=== PATIENT | female | born 1985 | race Two or more races ===

== ENCOUNTER 2019-02-07 19:59 | Inpatient (IN) | payer OTHER ==
--- NOTE | 2019-02-07 20:10 | PDOC ---
History of Present Illness - General Chief Complaint: Seizure Stated Complaint: Seizure - History of Present Illness Initial Comments: The pt is a 33F w/ no reported PMH who presents for evaluation s/p an episode of lightheadedness follow by falling, was caught by her friend, and had described eye rolling and right hand clenching with head shaking. This lasted for approximately 30 sec and the friend denies any description of a postictal state. The pt denies remembering the incident. She denies recent fevers/chill, chest pain, PETE, vision changes, N/V/C/D, dysuria, hematuria, or blood in her stool. She describes one previous episode in 09/2018 but she was not evaluated at that time. Currently she denies any symptoms or pain. No IUD, no OCPs, history of 1 in the past, no history of DVT 02/07/19 20:25 Past History - Past Medical History Allergies/Adverse Reactions: Allergies Allergy/AdvReac Type Severity Reaction Status Date / Time No Known Allergies Allergy Verified 02/07/19 20:50 COPD: No - Suicide/Smoking/Psychosocial Hx Smoking History: Unknown if ever smoked Review of Systems - Review of Systems Able to Perform ROS?: Yes Comments:: GENERAL/CONSTITUTIONAL: No fever or chills. No weakness HEAD, EYES, EARS, NOSE AND THROAT: No change in vision. No ear pain or discharge. No sore throat CARDIOVASCULAR: No chest pain or shortness of breath RESPIRATORY: Denies cough, hemoptysis GASTROINTESTINAL: No nausea, vomiting, diarrhea or constipation GENITOURINARY: No dysuria, frequency, or change in urination MUSCULOSKELETAL: No joint or muscle swelling or pain. No neck or back pain SKIN: No rash NEUROLOGIC: No headache, vertigo, or change in strength/sensation ENDOCRINE: No increased thirst. No abnormal weight change HEMATOLOGIC/LYMPHATIC: No anemia, easy bleeding, or history of blood clots ALLERGIC/IMMUNOLOGIC: No hives or skin allergy 02/07/19 20:10 Is the patient limited [place]an proficient: No *Physical Exam - Vital Signs Last Vital Signs Temp Pulse Resp BP Pulse Ox 98.0 F 101 H 18 112/75 100 02/07/19 20:01 02/07/19 20:01 02/07/19 20:01 02/07/19 20:01 02/07/19 20:01 - Physical Exam Comments: GENERAL: Awake, alert, and oriented to person/place/time, in no acute distress HEAD: No signs of trauma, normocephalic, atraumatic EYES: PERRLA, EOMI, sclera anicteric, conjunctiva clear ENT: Hearing grossly normal, nares patent, oropharynx clear without exudates. No uvular deviation. Moist mucosa LUNGS: No distress, speaks in full sentences, clear to auscultation bilaterally HEART: Regular rate and rhythm, normal S1 and S2, no murmurs appreciated, peripheral pulses normal and equal bilaterally ABDOMEN: Soft, nontender, normoactive bowel sounds. No guarding, no rebound EXTREMITIES: Normal inspection, Normal range of motion, no edema. No clubbing or cyanosis NEUROLOGICAL: Cranial nerves II through XII grossly intact. Normal speech, normal gait, no focal sensorimotor deficits SKIN: Warm, Dry 02/07/19 20:10 ED Treatment Course - LABORATORY CBC & Chemistry Diagram: 02/07/19 20:50 02/07/19 20:50 Medical Decision Making - Medical Decision Making The pt is a 33F w/ no reported PMH who presents for evaluation s/p likely syncopal episode approximately 2 hours [employer]BILE [employer] IN[employer]ER ED Course CMP, CBC, Trop I, Serum preg ECG CT head, CXR Noted to be Tachycardic -IVF 02/07/19 20:28 ECG w/ sinus tachycardic; HR 103; QTc 458; no evidence of acute ischemia 02/07/19 21:32 Leukocytosis to 13, afebrile Anemia to 9.1, no previous to compare to, transfusion not indicated at this time 02/07/19 21:39 CXR w/o PNA, PNX 02/07/19 21:51 Trop I neg Lytes wnl No NAKUL LFTs unremarkable 02/07/19 22:11 CT Head w/o contrast; 02/07/19 FINDINGS: The brain parenchyma demonstrates normal attenuation without focal mass or mass effect. The ventricles are not enlarged. No acute intracranial hemorrhage or acute infarction. The visualized aspect of the paranasal sinuses and mastoid air cells are unremarkable. No acute fracture 02/07/19 23:02 Plan for Tele obs for syncope Will add UDS and orthostatic VS 02/07/19 23:31 *DC/Admit/Observation/Transfer Diagnosis at time of Disposition: Syncope Qualifiers: Syncope type: unspecified Qualified Code(s): R55 - Syncope and collapse - Discharge Dispostion Condition at time of disposition: Good Decision to Admit order: Yes - Referrals - Patient Instructions - Post Discharge Activity
[2019-02-07] MEDS ORDERED: SODIUM CHLORIDE 0.9% 500 ML INFUS.BAG IV ONE (20:25)
[2019-02-07] MEDS ORDERED: SODIUM CHLORIDE 0.9% 1000 ML INFUS.BAG IV ONE (20:25)
[2019-02-07 21:27] LABS: BASO % 0.4 % (0-2.0); EOS % 0.3 % (0-4.5); HEMOGLOBIN 9.1 GM/dL (10.7-15.3); LYMPH % 12.6 % (8-40); MCH 23.2 pg (25.7-33.7); MCHC 30.3 g/dl (32.0-36.0); MEAN CELL VOLUME 76.6 fl (80-96); MEAN PLT VOLUME 8.5 fl (7.5-11.1); MONO % 5.2 % (3.8-10.2); NEUT % 81.5 % (42.8-82.8); PLATELET COUNT 512 K/MM3 (134-434); RBC 3.92 M/mm3 (3.60-5.2); RDW 22.1 % (11.6-15.6); WHITE BLOOD COUNT 13.4 K/mm3 (4.0-10.0)
[2019-02-07 21:52] LABS: ALK PHOS 69 U/L (45-117); ANION GAP 5 MMOL/L (8-16); BILIRUBIN,TOTAL 0.2 mg/dL (0.2-1); BLOOD UREA NITROGEN 8.8 mg/dL (7-18); CHLORIDE 106 mmol/L (98-107); CO2 31 mmol/L (21-32); CREATININE 0.9 mg/dL (0.55-1.3); GLUCOSE,RANDOM 87 mg/dL (74-106); POTASSIUM 3.9 mmol/L (3.5-5.1); SGOT/AST 19 U/L (15-37); SGPT/ALT 19 U/L (13-61); SODIUM 141 mmol/L (136-145); TOT PROT 8.1 g/dl (6.4-8.2)
[2019-02-07 22:16] LABS: ANISOCYTOSIS 2+
[2019-02-07 22:17] LABS: MACROCYTOSIS 1+; PLATELET ESTIMATE SLT INCREASE
--- NOTE | 2019-02-07 22:20 | PDOC ---
Documentation entered by Adelaida Farrell SCRIBE, acting as scribe for Amber Pringle MD. Amber Pringle MD: This documentation has been prepared by the Bud sommer Sammi, SCRIBE, under my direction and personally reviewed by me in its entirety. I confirm that the documentation accurately reflects all work, treatment, procedures, and medical decision making performed by me. Attending Attestation - Resident Resident Name: SharontawanaMinesh - ED Attending Attestation I have performed the following: I have examined & evaluated the patient, The case was reviewed & discussed with the resident, I agree w/resident's findings & plan, Exceptions are as noted - HPI HPI: 02/07/19 20:44 The patient is a 33 year old female, with no significant PMH, who presents to the emergency department for evaluation of lightheadedness and fainting, being caught by friend. The patient's friend at bedside reports the patient's eyes rolled back and right hand clenching. The patient denies chest pain, shortness of breath, headache and dizziness. Denies fever, chills, nausea, vomit, diarrhea and constipation. Denies dysuria, frequency, urgency and hematuria. Allergies: NKA - Physicial Exam PE: 02/07/19 21:03 GENERAL: Well developed, well nourished. Awake and alert. No acute distress. HEENT: Normocephalic, atraumatic. PERRLA, EOMI. No conjunctival pallor. Sclera are non- icteric. Moist mucous membranes. Oropharynx is clear. NECK: Supple. Full ROM. No JVD. Carotid pulses 2+ and symmetric, without bruits. No thyromegaly. No lymphadenopathy. CARDIOVASCULAR: (+)tachycardic No murmurs, rubs, or gallops. Distal pulses are 2+ and symmetric. PULMONARY: No evidence of respiratory distress. Lungs clear to auscultation bilaterally. No wheezing, rales or rhonchi. ABDOMINAL: Soft. Non-tender. Non-distended. No rebound or guarding. No organomegaly. Normoactive bowel sounds. MUSCULOSKELETAL Normal range of motion at all joints. No bony deformities or tenderness. No CVA tenderness. EXTREMITIES: No cyanosis. No clubbing. No edema. No calf tenderness. SKIN: Warm and dry. Normal capillary refill. No rashes. No jaundice. NEUROLOGICAL: Alert, awake, appropriate. Cranial nerves 2-12 intact. No deficits to light touch and temperature in face, upper extremities and lower extremities. No motor deficits in the in face, upper extremities and lower extremities. Normoreflexic in the upper and lower extremities. Normal speech. Toes are down- going bilaterally. - Medical Decision Making 02/07/19 21:33 33 yo female who denies any significant PMH had a witnessed fainting episode. She denies any inciting triggers.She denies palpitations,chest pain,fever,chills ,headache. She states she was not in the hot weather for any length of time -she had 1 prior episode earlier this year and also felt "flushed" just prior to losing consciousness -negative test negative troponin ekg is tachycardia @ 103 bpm -no tongue trauma, no bladder or bowel incontinence 02/07/19 21:44 will ADMIT for tele OBS 02/07/19 22:18 labs unremarkable
[2019-02-07 23:40] LABS: PH,URINE 8.5 (5.0-8.0); URINE APPEARANCE CLEAR; URINE BILIRUBIN NEGATIVE (NEGATIVE); URINE COLOR YELLOW; URINE GLUCOSE (UA) NEGATIVE (NEGATIVE); URINE KETONE NEGATIVE (NEGATIVE); URINE LEUK ESTERASE NEGATIVE (NEGATIVE); URINE NITRITE NEGATIVE (NEGATIVE); URINE PROTEIN NEGATIVE (NEGATIVE); URINE UROBILINOGEN 0.2 mg/dL (0.2-1.0)
[2019-02-07 23:57] LABS: COCAINE, UR NEGATIVE ng/ml (CUTOFF=300); METHADONE, UR NEGATIVE ng/ml (CUTOFF=300); OPIATES, URI NEGATIVE ng/ml (CUTOFF=300); PHENCYCLIDINE,URINE NEGATIVE ng/ml (CUTOFF=25); URINE AMPHETAMINES NEGATIVE ng/ml (CUTOFF=500); URINE BARBITURATES NEGATIVE ng/ml (CUTOFF=200); URINE BENZODIAZEPINES NEGATIVE ng/ml (CUTOFF=200)
--- NOTE | 2019-02-08 00:54 | HP ---
CHIEF COMPLAINT: syncope PCP: None HISTORY OF PRESENT ILLNESS: Pt. is a 33 y.o. F w/ PMHx. of anemia (currently self treating with OTC Iron tablets) presents after a syncopal episode that lasted 30 seconds. Pt. states that she felt lightheaded and dizzy just before fainting. Pt. endorses eating 1 hour before syncope. She states that she was with her friend who caught her as she was falling(preventing head trauma) noticed that her eyes rolled back in her head and that her hands clenched. Pt. denies biting her tongue, urinary or bowel incontinence, or a post-ictal state. Pt. states that this has happened before in September where she had the same pro- dromal symptoms and the same events with 3 notable exceptions: she was uncertain about biting her tongue at that time, she hit her head and she was in the middle of her menstruation cycle at that time. Pt. states that she has an irregular menstrual cycle and that she has heavy bleeding episodes when she does menstruate. Pt. endorses missing her periods in December and October. Pt. endorses a heavy bleeding course during this last cycle (LMP January 29). 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 Pt. does not take OCPs, has never had a pelvic US and is no longer prescribed Iron tablets. Pt. endorses feeling anxious both at work an at home. Pt. denies any chest pain, shortness of breath, numbness/tingling, fever, chills, changes in bowel or urinary habits, nausea or vomiting at this time. ER course was notable for: (1)Head CT, EKG, UA/UCx (2) CXR, 2L NS (3) Recent Travel: Did not Ask PAST MEDICAL HISTORY: As above PAST SURGICAL HISTORY: Denies Social History: Smoking: Denies Alcohol: Weekends 2-3 beers, "Not everyday drinker" Drugs: Last smoked Marijuana a few days ago, Denies any illicit drugs Family History: Denies Allergies No Known Allergies Allergy (Verified 02/07/19 20:50) HOME MEDICATIONS: OTC Iron Tablets - Pt. does not remember the done but states 1 pill per day. REVIEW OF SYSTEMS As above PHYSICAL EXAMINATION Vital Signs - 24 hr 02/07/19 20:01 Temperature 98.0 F Pulse Rate 101 H Respiratory 18 Rate Blood Pressure 112/75 O2 Sat by Pulse 100 Oximetry (%) GENERAL: Awake, alert, and fully oriented, in no acute distress. HEAD: Normal with no signs of trauma. EYES: Pupils equal, round and reactive to light, extraocular movements intact, sclera anicteric, conjunctiva clear. EARS, NOSE, THROAT: Ears normal, nares patent, oropharynx clear without exudates. Moist mucous membranes. NECK: Normal range of motion, supple without lymphadenopathy, JVD LUNGS: RLL ronchi, No wheezes. No accessory muscle use. HEART: Tachycardic, Regular rate and rhythm, normal S1 and S2 with diastolic? murmur ABDOMEN: Soft, nontender, not distended, normoactive bowel sounds, no guarding, no rebound MUSCULOSKELETAL: Normal range of motion at all joints. No bony deformities or tenderness. No CVA tenderness. UPPER EXTREMITIES: 2+ radial pulses, warm, well-perfused. No cyanosis. No clubbing. No peripheral edema. LOWER EXTREMITIES: warm, well-perfused. No calf tenderness. No peripheral edema. NEUROLOGICAL: Cranial nerves II-XII grossly intact. Normal speech. Normal gait. PSYCHIATRIC: Cooperative. Good eye contact. Anxious. SKIN: Warm, dry, normal turgor, no rashes or lesions noted, normal capillary refill. Laboratory Results - last 24 hr 02/07/19 02/07/19 02/07/19 20:50 20:50 20:55 WBC 13.4 H RBC 3.92 Hgb 9.1 L Hct 30.0 L MCV 76.6 L MCH 23.2 L MCHC 30.3 L RDW 22.1 H Plt Count 512 H MPV 8.5 Absolute Neuts (auto) 10.9 H Neutrophils % 81.5 Lymphocytes % 12.6 Monocytes % 5.2 Eosinophils % 0.3 Basophils % 0.4 Nucleated RBC % 0 Hypochromia 1+ Platelet Estimate Slt increase Platelet Comment Polychromasia 1+ Anisocytosis 2+ Microcytosis 1+ Macrocytosis 1+ Sodium 141 Potassium 3.9 Chloride 106 Carbon Dioxide 31 Anion Gap 5 L BUN 8.8 Creatinine 0.9 Est GFR (CKD-EPI)AfAm 96.01 Est GFR (CKD-EPI)NonAf 82.84 POC Glucometer 92 Random Glucose 87 Calcium 9.0 Total Bilirubin 0.2 AST 19 ALT 19 Alkaline Phosphatase 69 Troponin I < 0.02 Total Protein 8.1 Albumin 4.0 Serum , Qual Urine Color Urine Appearance Urine pH Ur Specific [place] Urine Protein Urine Glucose (UA) Urine Ketones Urine Blood Urine Nitrite Urine Bilirubin Urine Urobilinogen Ur Leukocyte Esterase Opiates Screen Methadone Screen Barbiturate Screen Phencyclidine Screen Ur Amphetamines Screen MDMA (Ecstasy) Screen Benzodiazepines Screen Cocaine Screen U Marijuana (THC) Screen 02/07/19 02/07/19 02/07/19 22:00 23:30 23:30 WBC RBC Hgb Hct MCV MCH MCHC RDW Plt Count MPV Absolute Neuts (auto) Neutrophils % Lymphocytes % Monocytes % Eosinophils % Basophils % Nucleated RBC % Hypochromia Platelet Estimate Platelet Comment Polychromasia Anisocytosis Microcytosis Macrocytosis Sodium Potassium Chloride Carbon Dioxide Anion Gap BUN Creatinine Est GFR (CKD-EPI)AfAm Est GFR (CKD-EPI)NonAf POC Glucometer Random Glucose Calcium Total Bilirubin AST ALT Alkaline Phosphatase Troponin I Total Protein Albumin Serum , Qual Negative Urine Color Yellow Urine Appearance Clear Urine pH 8.5 H Ur Specific [place] 1.008 L Urine Protein Negative Urine Glucose (UA) Negative Urine Ketones Negative Urine Blood Negative Urine Nitrite Negative Urine Bilirubin Negative Urine Urobilinogen 0.2 Ur Leukocyte Esterase Negative Opiates Screen Negative Methadone Screen Negative Barbiturate Screen Negative Phencyclidine Screen Negative Ur Amphetamines Screen Negative MDMA (Ecstasy) Screen Negative Benzodiazepines Screen Negative Cocaine Screen Negative U Marijuana (THC) Screen Negative ASSESSMENT/PLAN: Pt. is a 33 y.o. F w/ PMHx. of anemia (currently self treating with OTC Iron tablets) presents after a syncopal episode that lasted 30 seconds. #Syncope Orthostatic VS Negative f/u Echo New onset murmur- Pt. denies ever being told she has a heart murmur Received 2L NS, encourage PO intake f/u Carotid Doppler f/u EEG Neurology consult Dr. Nichols appreciated to r/o seizure #Microcytic Anemia may be contributing factor for syncopal episode HgB 9.1 Trend CBC f/u Iron and Reticulocyte studies f/u Transvaginal US consider SOFTWARE CONTROLS ENGINEER consult in AM would benefit from IV Iron, pending AM labs for Iron work-up #Thrombocytosis Plts.: 512 monitor CBC, may be within parameters of normal variant but more likely reactive to anemia, iron deficiency and/or syncope #FEN NS@100ml/hr, encourage PO intake monitor electrolytes and replete as needed Regular Diet #DVT Ppx. Early ambulation Visit type - Emergency Visit Emergency Visit: Yes ED Registration Date: 02/08/19 Care time: The patient presented to the Emergency Department on the above date and was hospitalized for further evaluation of their emergent condition. - New Patient This patient is new to me today: Yes Date on this admission: 02/08/19 - Critical Care Critical Care patient: No
--- NOTE | 2019-02-08 01:44 | PN ---
Teaching Attending Note Name of Resident: Evaristo Cobos ATTENDING PHYSICIAN STATEMENT I saw and evaluated the patient. I reviewed the resident's note and discussed the case with the resident. I agree with the resident's findings and plan as documented. SUBJECTIVE: Patient is a 33 year old woman with PMH of irregular menses and anemia who presents after a syncopal episode that lasted 30 seconds. Syas she felt lightheaded and dizzy just before fainting and had eaten hour before the episode. She was with her friend who caught her as she was falling. Her friend noticed that her eyes rolled back in her head and that her hands clenched. She denies biting her tongue, urinary or bowel incontinence, or a post-ictal state. She had a syncope in September 2018 - had the same prodromal symptoms and was in the middle of her menstrual period at that time. She has irregular menstrual cycles and has heavy bleeding episodes when she does menstruate. Missed her periods in December and October and her LMP was January 29. Has not had a pelvic sonogram to rule out fibroids. She says she is exposed to toxic chemicals at work; feels anxious at work and home; smokes marijuana but not cigarettes and denies using any illicit drugs or abusing alcohol. Denies family history of seizure disorder , cardiac problems or syncope. She denies chest pain, shortness of breath, numbness/tingling, fever, chills, changes in bowel or urinary habits, nausea or vomiting. OBJECTIVE: Alert and not orthostatic Vital Signs Period Temp Pulse Resp BP Sys/Lundberg Pulse Ox Last 24 Hr 98.0 F 87-110 18 104-121/72-77 100 HEENT: No Jaundice, eye redness or discharge, PERRLA, EOMI. Normocephalic, atraumatic. External ears are normal and hearing is grossly intact. No nasal discharge. Neck: Supple, nontender. No palpable adenopathy or thyromegaly. No JVD Chest: Good effort. Clear to auscultation and percussion. Heart: Regular. No S3, rub or murmur Abdomen: Not distended, soft, nontender and no HSM. No rebound or guarding. Normal bowel sounds. Ext: Peripheral pulses intact. No leg edema. Skin: Warm and dry. No petechiae, rash or ecchymosis. Neuro: Alert. Oriented x3. CN 2-12 grossly intact. Sensation grossly intact in all four extremities and DTR are symmetric. Psych: Appropriate mood and affect. Good insight. Abnormal Lab Results 02/07/19 02/07/19 02/07/19 20:50 20:50 23:30 WBC 13.4 H Hgb 9.1 L Hct 30.0 L MCV 76.6 L MCH 23.2 L MCHC 30.3 L RDW 22.1 H Plt Count 512 H Absolute Neuts (auto) 10.9 H Anion Gap 5 L Urine pH 8.5 H Ur Specific [place] 1.008 L ASSESSMENT AND PLAN: 1. Syncope: Etiology unclear - may not be explained solely by anemia. Being that this is a second episode in 5 months, will proceed with further work up. No acute abnormality on noncontrast head CT and CXR. EKG shows sinus tachycardia with no significant ST-T wave changes. Initial troponin is negative and urine toxicology screen is negative. Mild leukocytosis may be stress related - will monitor closely for any other signs of infection. Monitor on telemetry, repeat CBC, EKG and get carotid doppler, EEG, transvaginal sonogram and ECHO. Give IV NS. Outpatient neurology evaluation. 2. Anemia - Likely mostly due to excessive menstrual blood loss. Do basic anemia work up including serial stool guaiacs, reticulocyte count and iron studies. Once iron deficiency is confirmed, will give 1 gm IV venofer since most of the OTC oral iron supplement she can afford are inefficacious. The transvaginal sonogram being ordered to rule out fibroids. Importance of addressing her menometrorrhagia discussed with patient. 3. DVT prophylaxis - Lovenox 40 mg SQ q 24 hours. 4. Advance directives - Full code
[2019-02-08] MEDS: SODIUM CHLORIDE 1,000 ML IV SCH ×2 (03:04→18:46)
[2019-02-08 03:23] LABS: BASO % 1.4 % (0-2.0); EOS % 0.4 % (0-4.5); HEMATOCRIT 27.4 % (32.4-45.2); HEMOGLOBIN 8.2 GM/dL (10.7-15.3); LYMPH % 19.5 % (8-40); MCH 23.3 pg (25.7-33.7); MCHC 29.9 g/dl (32.0-36.0); MEAN PLT VOLUME 8.3 fl (7.5-11.1); MONO % 6.3 % (3.8-10.2); NEUT % 72.4 % (42.8-82.8); PLATELET COUNT 437 K/MM3 (134-434); RBC 3.51 M/mm3 (3.60-5.2); RDW 21.9 % (11.6-15.6); WHITE BLOOD COUNT 11.4 K/mm3 (4.0-10.0)
[2019-02-08 05:47] LABS: HEMATOCRIT 27.1 % (32.4-45.2); HEMOGLOBIN 8.2 GM/dL (10.7-15.3); MCH 23.5 pg (25.7-33.7); MCHC 30.4 g/dl (32.0-36.0); MEAN CELL VOLUME 77.2 fl (80-96); MEAN PLT VOLUME 8.5 fl (7.5-11.1); PLATELET COUNT 428 K/MM3 (134-434); WHITE BLOOD COUNT 11.5 K/mm3 (4.0-10.0)
[2019-02-08 06:10] LABS: BLOOD UREA NITROGEN 8.8 mg/dL (7-18); CREATININE 0.7 mg/dL (0.55-1.3); PHOSPHOROUS 3.2 mg/dL (2.5-4.9)
--- NOTE | 2019-02-08 07:52 | PN ---
Physical Exam: SUBJECTIVE: Patient seen and examined at bedside. no acute events since admission. pt feels better. tolerating PO. denies fever, chills ,cp, sob, n/v/d OBJECTIVE: Vital Signs Period Temp Pulse Resp BP Sys/Lundberg Pulse Ox Last 24 Hr 98.0 F-98.1 F 72-110 18-20 104-121/46-77 98-100 GENERAL: AOX3 HEAD: NCAT EYES: Pupils equal, round and reactive to light, extraocular movements intact, sclera anicteric, conjunctiva clear. EARS, NOSE, THROAT: nares patent, oropharynx clear without exudates. Moist mucous membranes. NECK: Normal range of motion, supple without lymphadenopathy, JVD LUNGS: CTAB HEART: RRR normal S1 and S2 with diastolic? murmur ABDOMEN: Soft, NTND, normoactive bowel sounds, no guarding, no rebound MUSCULOSKELETAL: Normal range of motion at all joints. No bony deformities or tenderness. No CVA tenderness. UPPER EXTREMITIES: 2+ radial pulses, warm, well-perfused. No cyanosis. No clubbing. No peripheral edema. LOWER EXTREMITIES: warm, well-perfused. No calf tenderness. No peripheral edema. NEUROLOGICAL: Cranial nerves II-XII grossly intact. Normal speech. Normal gait. PSYCHIATRIC: Cooperative. Good eye contact. Anxious. SKIN: Warm, dry, normal turgor, no rashes or lesions noted, normal capillary refill. Laboratory Results - last 24 hr 02/07/19 02/07/19 02/07/19 20:50 20:50 20:55 WBC 13.4 H RBC 3.92 Hgb 9.1 L Hct 30.0 L MCV 76.6 L MCH 23.2 L MCHC 30.3 L RDW 22.1 H Plt Count 512 H MPV 8.5 Absolute Neuts (auto) 10.9 H Neutrophils % 81.5 Lymphocytes % 12.6 Monocytes % 5.2 Eosinophils % 0.3 Basophils % 0.4 Nucleated RBC % 0 Hypochromia 1+ Platelet Estimate Slt increase Platelet Comment Polychromasia 1+ Anisocytosis 2+ Microcytosis 1+ Macrocytosis 1+ Retic Count Sodium 141 Potassium 3.9 Chloride 106 Carbon Dioxide 31 Anion Gap 5 L BUN 8.8 Creatinine 0.9 Est GFR (CKD-EPI)AfAm 96.01 Est GFR (CKD-EPI)NonAf 82.84 POC Glucometer 92 Random Glucose 87 Calcium 9.0 Phosphorus Magnesium Ferritin Total Bilirubin 0.2 AST 19 ALT 19 Alkaline Phosphatase 69 Troponin I < 0.02 Total Protein 8.1 Albumin 4.0 Serum , Qual Urine Color Urine Appearance Urine pH Ur Specific [place] Urine Protein Urine Glucose (UA) Urine Ketones Urine Blood Urine Nitrite Urine Bilirubin Urine Urobilinogen Ur Leukocyte Esterase Opiates Screen Methadone Screen Barbiturate Screen Phencyclidine Screen Ur Amphetamines Screen MDMA (Ecstasy) Screen Benzodiazepines Screen Cocaine Screen U Marijuana (THC) Screen 02/07/19 02/07/19 02/07/19 22:00 23:30 23:30 WBC RBC Hgb Hct MCV MCH MCHC RDW Plt Count MPV Absolute Neuts (auto) Neutrophils % Lymphocytes % Monocytes % Eosinophils % Basophils % Nucleated RBC % Hypochromia Platelet Estimate Platelet Comment Polychromasia Anisocytosis Microcytosis Macrocytosis Retic Count Sodium Potassium Chloride Carbon Dioxide Anion Gap BUN Creatinine Est GFR (CKD-EPI)AfAm Est GFR (CKD-EPI)NonAf POC Glucometer Random Glucose Calcium Phosphorus Magnesium Ferritin Total Bilirubin AST ALT Alkaline Phosphatase Troponin I Total Protein Albumin Serum , Qual Negative Urine Color Yellow Urine Appearance Clear Urine pH 8.5 H Ur Specific [place] 1.008 L Urine Protein Negative Urine Glucose (UA) Negative Urine Ketones Negative Urine Blood Negative Urine Nitrite Negative Urine Bilirubin Negative Urine Urobilinogen 0.2 Ur Leukocyte Esterase Negative Opiates Screen Negative Methadone Screen Negative Barbiturate Screen Negative Phencyclidine Screen Negative Ur Amphetamines Screen Negative MDMA (Ecstasy) Screen Negative Benzodiazepines Screen Negative Cocaine Screen Negative U Marijuana (THC) Screen Negative 02/08/19 02/08/19 02/08/19 03:15 03:15 03:15 WBC 11.4 H RBC 3.51 L Hgb 8.2 L Hct 27.4 L MCV 78.0 L MCH 23.3 L MCHC 29.9 L RDW 21.9 H Plt Count 437 H MPV 8.3 Absolute Neuts (auto) 8.3 H Neutrophils % 72.4 Lymphocytes % 19.5 D Monocytes % 6.3 Eosinophils % 0.4 Basophils % 1.4 D Nucleated RBC % 0 Hypochromia Platelet Estimate Platelet Comment Polychromasia Anisocytosis Microcytosis Macrocytosis Retic Count 2.14 H Sodium Potassium Chloride Carbon Dioxide Anion Gap BUN Creatinine Est GFR (CKD-EPI)AfAm Est GFR (CKD-EPI)NonAf POC Glucometer Random Glucose Calcium Phosphorus Magnesium Ferritin 3.4 L Total Bilirubin AST ALT Alkaline Phosphatase Troponin I Total Protein Albumin Serum , Qual Urine Color Urine Appearance Urine pH Ur Specific [place] Urine Protein Urine Glucose (UA) Urine Ketones Urine Blood Urine Nitrite Urine Bilirubin Urine Urobilinogen Ur Leukocyte Esterase Opiates Screen Methadone Screen Barbiturate Screen Phencyclidine Screen Ur Amphetamines Screen MDMA (Ecstasy) Screen Benzodiazepines Screen Cocaine Screen U Marijuana (THC) Screen 02/08/19 02/08/19 05:30 05:30 WBC 11.5 H RBC 3.50 L Hgb 8.2 L Hct 27.1 L MCV 77.2 L MCH 23.5 L MCHC 30.4 L RDW 22.0 H Plt Count 428 MPV 8.5 Absolute Neuts (auto) Neutrophils % Lymphocytes % Monocytes % Eosinophils % Basophils % Nucleated RBC % Hypochromia Platelet Estimate Platelet Comment Polychromasia Anisocytosis Microcytosis Macrocytosis Retic Count Sodium 140 Potassium 4.0 Chloride 112 H Carbon Dioxide 24 Anion Gap 4 L BUN 8.8 Creatinine 0.7 Est GFR (CKD-EPI)AfAm 130.10 Est GFR (CKD-EPI)NonAf 112.25 POC Glucometer Random Glucose 86 Calcium 8.0 L Phosphorus 3.2 Magnesium 2.0 Ferritin Total Bilirubin AST ALT Alkaline Phosphatase Troponin I Total Protein Albumin Serum , Qual Urine Color Urine Appearance Urine pH Ur Specific [place] Urine Protein Urine Glucose (UA) Urine Ketones Urine Blood Urine Nitrite Urine Bilirubin Urine Urobilinogen Ur Leukocyte Esterase Opiates Screen Methadone Screen Barbiturate Screen Phencyclidine Screen Ur Amphetamines Screen MDMA (Ecstasy) Screen Benzodiazepines Screen Cocaine Screen U Marijuana (THC) Screen Active Medications Generic Name Dose Route Start Last Admin Trade Name Freq PRN Reason Stop Dose Admin Sodium Chloride 1,000 mls @ 100 mls/hr 02/08/19 02:15 02/08/19 03:04 Normal Saline - IV 100 mls/hr ASDIR GRETCHEN Administration ECHO Interpretation Summary The left ventricle is normal in size. Left ventricular systolic function is normal. No regional wall motion abnormalities noted. Ejection Fraction = 65-70%. The right ventricular systolic function is normal. The left atrial size is normal. Right atrial size is normal. There is mild mitral annular calcification. There is mild mitral regurgitation. There is mild tricuspid regurgitation. Right ventricular systolic pressure is normal. Trace to mild pulmonic valvular regurgitation. There is no pericardial effusion. Previous study is not available for comparison Zacarias Krishnan MD 02/08/2019 12:16 PM Reported By: Zacarias Krishnan MD 02/08/19 1216 [id number] US/TRANSVAGINAL ULTRASOUND US HISTORY PROVIDED: Fibroid evaluation. Real time examination of the pelvis utilizing the transvaginal probe demonstrates the following: The uterus is normal in size measuring 9.3 x 5.2 x 4.7 cm. There is a submucosal uterine mass measuring 3.1 x 2.8 x 1.8 cm. This is consistent with a leiomyoma. A normal appearing endometrium of 3 mm thickness is identified. A nabothian cyst is noted within the cervix. The ovaries are normal in size and texture with arterial flow documented to both ovaries. There is no evidence of adnexal masses or free pelvic fluid collections. IMPRESSION: Small submucosal fibroid, otherwise normal pelvic sonogram. Reported By: Barrett Alas MD 02/08/19 0836 ASSESSMENT/PLAN: 33 y.o. F w/ PMHx. of anemia (currently self treating with OTC Iron tablets) presents after a syncopal episode that lasted 30 seconds. #Syncope, possibly 2/2 dehydration vs anemia, vs seizure s/p 2L NS, encourage PO intake Orthostatics negative CXR nl UA, Utox neg Echo reviewed above Carotid Doppler without evidence of HD significant stenosis b/l CT head no acute pathology f/u EEG Neurology consulted, Dr. Nichols appreciated to r/o seizure #microcytic Anemia may be contributing factor for syncopal episode HgB 9.1...8.2 monitor H/H f/u Iron studies, ferritin 3 B12 folate nl Reticulocyte count elevated 2.14 Transvaginal US reviewed above, Small submucosal fibroid, may be a cause of anemia via heavy menstruations consider COVERER consult will give IV Iron #Thrombocytosis - unclear etiology, resolving Plts.: 512...437...428 monitor #FEN NS@100ml/hr, encourage PO intake monitor electrolytes and replete as needed Regular Diet #DVT Ppx. Early ambulation dispo tele Visit type - Emergency Visit Emergency Visit: Yes ED Registration Date: 02/08/19 Care time: The patient presented to the Emergency Department on the above date and was hospitalized for further evaluation of their emergent condition. - New Patient This patient is new to me today: Yes Date on this admission: 02/08/19 - Critical Care Critical Care patient: No
[2019-02-08] MEDS ORDERED: IRON SUCROSE INJECTION 200 MG in SODIUM CHLORIDE 90 ML IVPB ONE (09:00)
--- NOTE | 2019-02-08 09:32 | CONSULT ---
Consult - text type - Consultation Consultation Note: Neurology CHIEF COMPLAINT: syncope PCP: None HISTORY OF PRESENT ILLNESS: 33 y.o. F w/ PMHx. of anemia (currently self treating with OTC Iron tablets) presents after a syncopal episode that lasted 30 seconds. Pt. stated that she felt lightheaded and dizzy just before fainting. She endorsed eating 1 hour before syncope. She stated that she was with her friend who caught her as she was falling(preventing head trauma) noticed that her eyes rolled back in her head and that her hands clenched. Pt. denied biting her tongue, urinary or bowel incontinence, or a post-ictal state. Pt. stated that this has happened before in September where she had the same pro-dromal symptoms and the same events with 3 notable exceptions: she was uncertain about biting her tongue at that time, she hit her head and she was in the middle of her menstruation cycle at that time. Pt. stated that she has an irregular menstrual cycle and that she has heavy bleeding episodes when she does menstruate. Pt. endorses missing her periods in December and October. Pt. endorses a heavy bleeding course during this last cycle (LMP January 29). Pt. endorsed having an [employer] who knows about her anemia and her irregular cycle. Pt. does not take OCPs, has never had a pelvic US and is no longer prescribed Iron tablets. Pt. endorsed feeling anxious both at work an at home. Pt. denies any chest pain, shortness of breath, numbness/tingling, fever, chills, changes in bowel or urinary habits, nausea or vomiting at this time. Ct head completed on admission and no acute changes noted. EEG ordered to rule out seizures, in agreement with this. PAST MEDICAL HISTORY: As above PAST SURGICAL HISTORY: Denies Social History: Smoking: Denies Alcohol: Weekends 2-3 beers, "Not everyday drinker" Drugs: Last smoked Marijuana a few days ago, Denies any illicit drugs Family History: HTN Allergies No Known Allergies Allergy (Verified 02/07/19 20:50) HOME MEDICATIONS: OTC Iron Tablets - Pt. does not remember the done but states 1 pill per day. REVIEW OF SYSTEMS As above PHYSICAL EXAMINATION Vital Signs - 24 hr 02/07/19 20:01 Temperature 98.0 F Pulse Rate 101 H Respiratory 18 Rate Blood Pressure 112/75 O2 Sat by Pulse 100 Oximetry (%) GENERAL: Awake, alert, and fully oriented, in no acute distress. HEAD: Normal with no signs of trauma. EYES: Pupils equal, round and reactive to light, extraocular movements intact, sclera anicteric, conjunctiva clear. EARS, NOSE, THROAT: Ears normal, nares patent, oropharynx clear without exudates. Moist mucous membranes. NECK: Normal range of motion, supple without lymphadenopathy, JVD LUNGS: RLL ronchi, No wheezes. No accessory muscle use. HEART: Tachycardic, Regular rate and rhythm, normal S1 and S2 ABDOMEN: Soft, nontender, not distended, normoactive bowel sounds, no guarding, no rebound MUSCULOSKELETAL: Normal range of motion at all joints. No bony deformities or tenderness. No CVA tenderness. UPPER EXTREMITIES: 2+ radial pulses, warm, well-perfused. No cyanosis. No clubbing. No peripheral edema. LOWER EXTREMITIES: warm, well-perfused. No calf tenderness. No peripheral edema. NEUROLOGICAL: Cranial nerves II-XII grossly intact. Normal speech. Normal gait. PSYCHIATRIC: Cooperative. Good eye contact. Anxious. SKIN: Warm, dry, normal turgor, no rashes or lesions noted, normal capillary refill. Laboratory Results - last 24 hr 02/07/19 02/07/19 02/07/19 20:50 20:50 20:55 WBC 13.4 H RBC 3.92 Hgb 9.1 L Hct 30.0 L MCV 76.6 L MCH 23.2 L MCHC 30.3 L RDW 22.1 H Plt Count 512 H MPV 8.5 Absolute Neuts (auto) 10.9 H Neutrophils % 81.5 Lymphocytes % 12.6 Monocytes % 5.2 Eosinophils % 0.3 Basophils % 0.4 Nucleated RBC % 0 Hypochromia 1+ Platelet Estimate Slt increase Platelet Comment Polychromasia 1+ Anisocytosis 2+ Microcytosis 1+ Macrocytosis 1+ Sodium 141 Potassium 3.9 Chloride 106 Carbon Dioxide 31 Anion Gap 5 L BUN 8.8 Creatinine 0.9 Est GFR (CKD-EPI)AfAm 96.01 Est GFR (CKD-EPI)NonAf 82.84 POC Glucometer 92 Random Glucose 87 Calcium 9.0 Total Bilirubin 0.2 AST 19 ALT 19 Alkaline Phosphatase 69 Troponin I < 0.02 Total Protein 8.1 Albumin 4.0 Serum , Qual Urine Color Urine Appearance Urine pH Ur Specific [place] Urine Protein Urine Glucose (UA) Urine Ketones Urine Blood Urine Nitrite Urine Bilirubin Urine Urobilinogen Ur Leukocyte Esterase Opiates Screen Methadone Screen Barbiturate Screen Phencyclidine Screen Ur Amphetamines Screen MDMA (Ecstasy) Screen Benzodiazepines Screen Cocaine Screen U Marijuana (THC) Screen 02/07/19 02/07/19 02/07/19 22:00 23:30 23:30 WBC RBC Hgb Hct MCV MCH MCHC RDW Plt Count MPV Absolute Neuts (auto) Neutrophils % Lymphocytes % Monocytes % Eosinophils % Basophils % Nucleated RBC % Hypochromia Platelet Estimate Platelet Comment Polychromasia Anisocytosis Microcytosis Macrocytosis Sodium Potassium Chloride Carbon Dioxide Anion Gap BUN Creatinine Est GFR (CKD-EPI)AfAm Est GFR (CKD-EPI)NonAf POC Glucometer Random Glucose Calcium Total Bilirubin AST ALT Alkaline Phosphatase Troponin I Total Protein Albumin Serum , Qual Negative Urine Color Yellow Urine Appearance Clear Urine pH 8.5 H Ur Specific [place] 1.008 L Urine Protein Negative Urine Glucose (UA) Negative Urine Ketones Negative Urine Blood Negative Urine Nitrite Negative Urine Bilirubin Negative Urine Urobilinogen 0.2 Ur Leukocyte Esterase Negative Opiates Screen Negative Methadone Screen Negative Barbiturate Screen Negative Phencyclidine Screen Negative Ur Amphetamines Screen Negative MDMA (Ecstasy) Screen Negative Benzodiazepines Screen Negative Cocaine Screen Negative U Marijuana (THC) Screen Negative ASSESSMENT/PLAN: 33 y.o. F w/ PMHx. of anemia (currently self treating with OTC Iron tablets) presents after a syncopal episode that lasted 30 seconds. Pt. stated that she felt lightheaded and dizzy just before fainting. She endorsed eating 1 hour before syncope. She stated that she was with her friend who caught her as she was falling(preventing head trauma) noticed that her eyes rolled back in her head and that her hands clenched. Pt. denied biting her tongue, urinary or bowel incontinence, or a post-ictal state. Pt. stated that this has happened before in September where she had the same pro-dromal symptoms and the same events with 3 notable exceptions: she was uncertain about biting her tongue at that time, she hit her head and she was in the middle of her menstruation cycle at that time. Pt. stated that she has an irregular menstrual cycle and that she has heavy bleeding episodes when she does menstruate. Pt. endorses missing her periods in December and October. Pt. endorses a heavy bleeding course during this last cycle (LMP January 29). Pt. endorsed having an [employer] who knows about her anemia and her irregular cycle. Pt. does not take OCPs, has never had a pelvic US and is no longer prescribed Iron tablets. Pt. endorsed feeling anxious both at work an at home. Pt. denies any chest pain, shortness of breath, numbness/tingling, fever, chills, changes in bowel or urinary habits, nausea or vomiting at this time. Ct head completed on admission and no acute changes noted. EEG ordered to rule out seizures, in agreement with this. Cardiac eval ongoing, patient on telemetry monitoring. Discussed hydration (consumes <32 oz per day) and increased fluid intake. Follow up anemia workup.
--- NOTE | 2019-02-08 10:35 | EKG ---
Test Reason : Blood Pressure : / mmHG Vent. Rate : 103 BPM Atrial Rate : 103 BPM P-R Int : 178 ms QRS Dur : 078 ms QT Int : 350 ms P-R-T Axes : 054 047 042 degrees QTc Int : 458 ms SINUS TACHYCARDIA OTHERWISE NORMAL ECG NO PREVIOUS ECGS AVAILABLE Confirmed by LO RODGERS MD ([id number]) on 02/08/2019 10:35:14 AM Referred By: Confirmed By:LO RODGERS MD
--- NOTE | 2019-02-08 12:16 | ECHO ---
Name: BENNIE SCALES Exam:Adult Echocardiogram Study Date: 02/08/2019 08:21 AM Age: 33 yrs Reason For Study: [facility] Height: 61 in Weight: 125 lb BSA: 1.5 m2 MMode/2D Measurements & Calculations IVSd: 0.75 cm Ao root diam: 2.2 cm LVIDd: 4.3 cm LA dimension: 2.8 cm LVIDs: 2.6 cm LVPWd: 0.72 cm EDV(Teich): 81.0 ml LVOT diam: 2.0 cm ESV(Teich): 25.0 ml Doppler Measurements & Calculations MV E max angel: 93.3 cm/sec Ao V2 max: 168.9 cm/sec MV A max angel: 53.3 cm/sec Ao max P.4 mmHg MV E/A: 1.8 Ao V2 mean: 119.6 cm/sec MV dec time: 0.18 sec Ao mean P.4 mmHg Ao V2 VTI: 37.9 cm PATRICE(I,D): 1.6 cm2 PATRICE(V,D): 1.7 cm2 LV V1 max P.8 mmHg MR max angel: 417.2 cm/sec LV V1 mean P.8 mmHg MR max P.7 mmHg LV V1 max: 94.3 cm/sec LV V1 mean: 62.3 cm/sec LV V1 VTI: 19.9 cm SV(LVOT): 60.5 ml TR max angel: 197.9 cm/sec TR max P.7 mmHg Med Peak E' Angel: 11.5 cm/sec Med E/e': 8.1 Lat Peak E' Angel: 14.6 cm/sec Lat E/e': 6.4 Procedure A complete two-dimensional transthoracic echocardiogram was performed (2D, M-mode, Doppler and color flow Doppler). Left Ventricle The left ventricle is normal in size. Left ventricular systolic function is normal. Ejection Fraction = 65- 70%. No regional wall motion abnormalities noted. Right Ventricle The right ventricle is normal size. The right ventricular systolic function is normal. RV systolic TD I is 13 cm/s. Atria The left atrial size is normal. Right atrial size is normal. Mitral Valve There is mild mitral annular calcification. There is mild mitral regurgitation. Tricuspid Valve The tricuspid valve is normal in structure and function. There is mild tricuspid regurgitation. Right ventricular systolic pressure is normal. Aortic Valve The aortic valve is normal in structure and function. No aortic regurgitation is present. Pulmonic Valve The pulmonic valve is not well visualized. Trace to mild pulmonic valvular regurgitation. Great Vessels The aortic root is normal size. Pericardium/Pleura There is no pericardial effusion. Interpretation Summary The left ventricle is normal in size. Left ventricular systolic function is normal. No regional wall motion abnormalities noted. Ejection Fraction = 65-70%. The right ventricular systolic function is normal. The left atrial size is normal. Right atrial size is normal. There is mild mitral annular calcification. There is mild mitral regurgitation. There is mild tricuspid regurgitation. Right ventricular systolic pressure is normal. Trace to mild pulmonic valvular regurgitation. There is no pericardial effusion. Previous study is not available for comparison Zacarias Krishnan MD 02/08/2019 12:16 PM
[2019-02-08 16:04] VITALS: BMI 23.9
--- NOTE | 2019-02-08 21:50 | PN ---
Teaching Attending Note Name of Resident: Moreno Traylor ATTENDING PHYSICIAN STATEMENT I saw and evaluated the patient. I reviewed the resident's note and discussed the case with the resident. I agree with the resident's findings and plan as documented. SUBJECTIVE: Patient is feeling better today. OBJECTIVE: Vital Signs Temperature 98.6 F 02/08/19 20:40 Pulse Rate 88 02/08/19 20:40 Respiratory Rate 20 02/08/19 20:40 Blood Pressure 112/66 02/08/19 20:40 O2 Sat by Pulse Oximetry (%) 99 02/08/19 20:40 GENERAL: The patient is awake, alert, and fully oriented, in no acute distress. HEAD: Normal with no signs of trauma. EYES: PERRL, extraocular movements intact, sclera anicteric, conjunctiva clear. ENT: Ears normal, oropharynx clear without exudates, moist mucous membranes. NECK: Trachea midline, full range of motion, supple. LUNGS: Breath sounds equal, clear to auscultation bilaterally, no wheezes, no crackles, no accessory muscle use. HEART: Regular rate and rhythm, S1, S2 without murmur, rub or gallop. ABDOMEN: Soft, nontender, nondistended, normoactive bowel sounds, no guarding, no rebound, no hepatosplenomegaly, no masses. EXTREMITIES: 2+ pulses, warm, well-perfused, no edema. NEUROLOGICAL: Cranial nerves II through XII grossly intact. Normal speech, gait not observed. PSYCH: Normal mood, normal affect. SKIN: Warm, dry, normal turgor, no rashes or lesions noted CBCD WBC 11.5 K/mm3 (4.0-10.0) H 02/08/19 05:30 RBC 3.50 M/mm3 (3.60-5.2) L 02/08/19 05:30 Hgb 8.2 GM/dL (10.7-15.3) L 02/08/19 05:30 Hct 27.1 % (32.4-45.2) L 02/08/19 05:30 MCV 77.2 fl (80-96) L 02/08/19 05:30 MCHC 30.4 g/dl (32.0-36.0) L 02/08/19 05:30 RDW 22.0 % (11.6-15.6) H 02/08/19 05:30 Plt Count 428 K/MM3 (134-434) 02/08/19 05:30 MPV 8.5 fl (7.5-11.1) 02/08/19 05:30 CMP Sodium 140 mmol/L (136-145) 02/08/19 05:30 Potassium 4.0 mmol/L (3.5-5.1) 02/08/19 05:30 Chloride 112 mmol/L (98-107) H 02/08/19 05:30 Carbon Dioxide 24 mmol/L (21-32) 02/08/19 05:30 Anion Gap 4 MMOL/L (8-16) L 02/08/19 05:30 BUN 8.8 mg/dL (7-18) 02/08/19 05:30 Creatinine 0.7 mg/dL (0.55-1.3) 02/08/19 05:30 Random Glucose 86 mg/dL (74-106) 02/08/19 05:30 Calcium 8.0 mg/dL (8.5-10.1) L 02/08/19 05:30 Total Bilirubin 0.2 mg/dL (0.2-1) 02/07/19 20:50 AST 19 U/L (15-37) 02/07/19 20:50 ALT 19 U/L (13-61) 02/07/19 20:50 Alkaline Phosphatase 69 U/L (45-117) 02/07/19 20:50 Total Protein 8.1 g/dl (6.4-8.2) 02/07/19 20:50 Albumin 4.0 g/dl (3.4-5.0) 02/07/19 20:50 CARDIAC ENZYMES Troponin I < 0.02 ng/ml (0.00-0.05) 02/07/19 20:50 Current Medications Generic Name Dose Route Start Last Admin Trade Name Freq PRN Reason Stop Dose Admin Sodium Chloride 1,000 mls @ 100 mls/hr 02/08/19 02:15 02/08/19 18:46 Normal Saline - IV 100 mls/hr ASDIR GRETCHEN Administration Home Medications Medication Instructions Recorded Ferrous Sulfate [Iron] 325 mg PO DAILY 02/08/19 Transvaginal US reviewed above, Small submucosal fibroid, may be a cause of anemia via heavy menstruations ASSESSMENT AND PLAN: Patient is a 33yo female w/ PMHx. of anemia (currently self treating with OTC Iron tablets) presents after a syncopal episode that lasted 30 seconds. #Syncope most likely due to Iron deficency anemia , patient is getting IV Irom infusion #microcytic Anemia on IV iron today #Thrombocytosis - resolved DVT Ppx: Early ambulation
[2019-02-09 04:10] LABS: SERUM IRON SATURATION 4 % (15-55); TOTAL IRON BINDING CAPACITY 348 ug/dL (250-450)
[2019-02-09 06:12] VITALS: TEMP 98.5
[2019-02-09 06:46] LABS: BASO % 0.6 % (0-2.0); EOS % 2.8 % (0-4.5); HEMATOCRIT 28.3 % (32.4-45.2); HEMOGLOBIN 8.7 GM/dL (10.7-15.3); LYMPH % 26.2 % (8-40); MCH 23.8 pg (25.7-33.7); MCHC 30.9 g/dl (32.0-36.0); MEAN CELL VOLUME 76.9 fl (80-96); MEAN PLT VOLUME 8.6 fl (7.5-11.1); MONO % 6.6 % (3.8-10.2); NEUT % 63.8 % (42.8-82.8); PLATELET COUNT 423 K/MM3 (134-434); RBC 3.67 M/mm3 (3.60-5.2); RDW 21.9 % (11.6-15.6); WHITE BLOOD COUNT 8.4 K/mm3 (4.0-10.0)
[2019-02-09 07:18] LABS: BLOOD UREA NITROGEN 5.4 mg/dL (7-18); CALCIUM 8.8 mg/dL (8.5-10.1); CREATININE 0.7 mg/dL (0.55-1.3); POTASSIUM 4.1 mmol/L (3.5-5.1)
--- NOTE | 2019-02-09 08:26 | PN ---
Progress Note (short form) - Note Progress Note: Neurology CHIEF COMPLAINT: syncope PCP: None HISTORY OF PRESENT ILLNESS: 33 y.o. F w/ PMHx. of anemia (currently self treating with OTC Iron tablets) presents after a syncopal episode that lasted 30 seconds. Pt. stated that she felt lightheaded and dizzy just before fainting. She endorsed eating 1 hour before syncope. She stated that she was with her friend who caught her as she was falling(preventing head trauma) noticed that her eyes rolled back in her head and that her hands clenched. Pt. denied biting her tongue, urinary or bowel incontinence, or a post-ictal state. Pt. stated that this has happened before in September where she had the same pro-dromal symptoms and the same events with 3 notable exceptions: she was uncertain about biting her tongue at that time, she hit her head and she was in the middle of her menstruation cycle at that time. Pt. stated that she has an irregular menstrual cycle and that she has heavy bleeding episodes when she does menstruate. Pt. endorses missing her periods in December and October. Pt. endorses a heavy bleeding course during this last cycle (LMP January 29). 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 Pt. does not take OCPs, has never had a pelvic US and is no longer prescribed Iron tablets. Pt. endorsed feeling anxious both at work an at home. Pt. denies any chest pain, shortness of breath, numbness/tingling, fever, chills, changes in bowel or urinary habits, nausea or vomiting at this time. Ct head completed on admission and no acute changes noted. EEG completed , pending official read. Carotid dopplers reviwed and discussed, no HD significant stenosis. Pelvic U/S also reviewed and discussed, small fibroid mentioned but otherwise no significant pathology noted. Patient reports being at baseline without symptoms. Allergies No Known Allergies Allergy (Verified 02/07/19 20:50) HOME MEDICATIONS: OTC Iron Tablets - Pt. does not remember the done but states 1 pill per day. Active Medications Sodium Chloride (Normal Saline -) 1,000 mls @ 100 mls/hr IV ASDIR GRETCHEN Last Admin: 02/08/19 18:46 Dose: 100 mls/hr PHYSICAL EXAMINATION Vital Signs Period Temp Pulse Resp BP Sys/Lundberg Pulse Ox Last 24 Hr 98.1 F-99.0 F 74-88 18-20 105-129/60-75 99-100 GENERAL: Awake, alert, and fully oriented, in no acute distress. HEAD: Normal with no signs of trauma. EYES: Pupils equal, round and reactive to light, extraocular movements intact, sclera anicteric, conjunctiva clear. EARS, NOSE, THROAT: Ears normal, nares patent, oropharynx clear without exudates. Moist mucous membranes. NECK: Normal range of motion, supple without lymphadenopathy, JVD LUNGS: RLL ronchi, No wheezes. No accessory muscle use. HEART: Tachycardic, Regular rate and rhythm, normal S1 and S2 ABDOMEN: Soft, nontender, not distended, normoactive bowel sounds, no guarding, no rebound MUSCULOSKELETAL: Normal range of motion at all joints. No bony deformities or tenderness. No CVA tenderness. UPPER EXTREMITIES: 2+ radial pulses, warm, well-perfused. No cyanosis. No clubbing. No peripheral edema. LOWER EXTREMITIES: warm, well-perfused. No calf tenderness. No peripheral edema. NEUROLOGICAL: Cranial nerves II-XII grossly intact. Normal speech. Normal gait. PSYCHIATRIC: Cooperative. Good eye contact. Anxious. SKIN: Warm, dry, normal turgor, no rashes or lesions noted, normal capillary refill. CBCD WBC 8.4 K/mm3 (4.0-10.0) 02/09/19 05:52 RBC 3.67 M/mm3 (3.60-5.2) 02/09/19 05:52 Hgb 8.7 GM/dL (10.7-15.3) L 02/09/19 05:52 Hct 28.3 % (32.4-45.2) L 02/09/19 05:52 MCV 76.9 fl (80-96) L 02/09/19 05:52 MCHC 30.9 g/dl (32.0-36.0) L 02/09/19 05:52 RDW 21.9 % (11.6-15.6) H 02/09/19 05:52 Plt Count 423 K/MM3 (134-434) 02/09/19 05:52 MPV 8.6 fl (7.5-11.1) 02/09/19 05:52 CMP Sodium 141 mmol/L (136-145) 02/09/19 06:15 Potassium 4.1 mmol/L (3.5-5.1) 02/09/19 06:15 Chloride 111 mmol/L (98-107) H 02/09/19 06:15 Carbon Dioxide 26 mmol/L (21-32) 02/09/19 06:15 Anion Gap 5 MMOL/L (8-16) L 02/09/19 06:15 BUN 5.4 mg/dL (7-18) L 02/09/19 06:15 Creatinine 0.7 mg/dL (0.55-1.3) 02/09/19 06:15 Random Glucose 85 mg/dL (74-106) 02/09/19 06:15 Calcium 8.8 mg/dL (8.5-10.1) 02/09/19 06:15 Total Bilirubin 0.2 mg/dL (0.2-1) 02/07/19 20:50 AST 19 U/L (15-37) 02/07/19 20:50 ALT 19 U/L (13-61) 02/07/19 20:50 Alkaline Phosphatase 69 U/L (45-117) 02/07/19 20:50 Total Protein 8.1 g/dl (6.4-8.2) 02/07/19 20:50 Albumin 4.0 g/dl (3.4-5.0) 02/07/19 20:50 CARDIAC ENZYMES Troponin I < 0.02 ng/ml (0.00-0.05) 02/07/19 20:50 ASSESSMENT/PLAN: 33 y.o. F w/ PMHx. of anemia (currently self treating with OTC Iron tablets) presents after a syncopal episode that lasted 30 seconds. Pt. stated that she felt lightheaded and dizzy just before fainting. She endorsed eating 1 hour before syncope. She stated that she was with her friend who caught her as she was falling(preventing head trauma) noticed that her eyes rolled back in her head and that her hands clenched. Pt. denied biting her tongue, urinary or bowel incontinence, or a post-ictal state. Pt. stated that this has happened before in September where she had the same pro-dromal symptoms and the same events with 3 notable exceptions: she was uncertain about biting her tongue at that time, she hit her head and she was in the middle of her menstruation cycle at that time. Pt. stated that she has an irregular menstrual cycle and that she has heavy bleeding episodes when she does menstruate. Pt. endorses missing her periods in December and October. Pt. endorses a heavy bleeding course during this last cycle (LMP January 29). 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 Pt. does not take OCPs, has never had a pelvic US and is no longer prescribed Iron tablets. Pt. endorsed feeling anxious both at work an at home. Pt. denies any chest pain, shortness of breath, numbness/tingling, fever, chills, changes in bowel or urinary habits, nausea or vomiting at this time. Ct head completed on admission and no acute changes noted. EEG completed , pending official read. Carotid dopplers reviwed and discussed, no HD significant stenosis. Pelvic U/S also reviewed and discussed, small fibroid mentioned but otherwise no significant pathology noted. Patient reports being at baseline without symptoms. Cardiac follow up on telemetry monitoring. Discussed hydration (consumes <32 oz per day) and increased fluid intake. Follow up anemia workup. Neurologically stable at this time pending official read of EEG. If negative, no objection to patient being discharged with outpatient follow up in 2 weeks.
[2019-02-09 10:33] LABS: UIBC 334
[2019-02-09 10:34] VITALS: BP 111/71; PULSE 85
[2019-02-09] MEDS ORDERED: IRON SUCROSE INJECTION 300 MG in SODIUM CHLORIDE 235 ML IVPB ONE (11:10)
--- NOTE | 2019-02-09 11:38 | PN ---
Progress Note (short form) - Note Progress Note: Chief Complaint: Events noted, notes reviewed, recurrent syncope with prodrome consistent with neuro-cardiogenic syncope/vaso-vagal unlikely to be vasodepressor History of Present Illness: Seen and examined on telemetry. Full consult dictated - Current Medication List Current Medications Sodium Chloride (Normal Saline -) 1,000 mls @ 100 mls/hr IV ASDIR GRETCHEN Last Admin: 02/08/19 18:46 Dose: 100 mls/hr Review of Systems Constitutional: denies: Chills, Fever Cardiovascular: As Noted Above Respiratory: denies: Cough or Sputum Production Gastrointestinal: denies: Nausea, Vomiting, Constipation or Abdominal Pain Genitourinary: denies: Dysuria Musculoskeletal: No Symptoms Reported Neurological: denies: Dizziness, Headache - Objective Vital Signs: Last Vital Signs Temp Pulse Resp BP Pulse Ox 98.5 F 85 18 111/71 100 02/09/19 10:00 02/09/19 10:00 02/09/19 10:00 02/09/19 10:00 02/09/19 09:00 Intake & Output 02/06/19 02/07/19 02/08/19 02/09/19 23:59 23:59 23:59 23:59 Intake Total 982 Balance 982 Weight 125 lb 126 lb 12.8 oz Neck: Supple Negative JVD Cardiovascular: S1 S2 Regular Rate and Rhythm No Murmurs Clicks or Gallops Respiratory: Clear to A&P Bilaterally Gastrointestinal: Soft Benign Normal Bowel Sounds Ext: Negative Edema Labs: CBC, BMP 02/09/19 05:52 02/09/19 06:15 Hepatic Panel Total Bilirubin 0.2 mg/dL (0.2-1) 02/07/19 20:50 AST 19 U/L (15-37) 02/07/19 20:50 ALT 19 U/L (13-61) 02/07/19 20:50 Alkaline Phosphatase 69 U/L (45-117) 02/07/19 20:50 Albumin 4.0 g/dl (3.4-5.0) 02/07/19 20:50 Assessment/Plan ASSESSMENT: 1. Clinical presentation consistent with neuro-cardiogenic syncope/vaso-vagal syncope unlikely to be vasodepressor or cardioinhibitory 2. Sinus tachycardia suggestive of postural orthostatic tachycardia syndrome/ POTS 3. Iron deficiency anemia related to heavy menses, post iron infusion PLAN: 1. No therapy initiation is recommended as of yet pending completion of evaluation, tilt table testing 2. Counselled liberalizing fluid and salt intake 3. Correction of anemia 4. Tilt table testing as outlined above- outpatient and consideration for initiation of B-Blockers therapy eventually if indicated 5. Can be D/C home from the cardiovascular point of view Discussed in detail with the patient Dafne Jara MD
--- NOTE | 2019-02-09 12:40 | PN ---
Teaching Attending Note Name of Resident: Moreno Traylor ATTENDING PHYSICIAN STATEMENT I saw and evaluated the patient. I reviewed the resident's note and discussed the case with the resident. I agree with the resident's findings and plan as documented. SUBJECTIVE: Patient is asymptomatic, feeling better with no acute distress. OBJECTIVE: Vital Signs Temperature 98.5 F 02/09/19 10:00 Pulse Rate 85 02/09/19 10:00 Respiratory Rate 18 02/09/19 10:00 Blood Pressure 111/71 02/09/19 10:00 O2 Sat by Pulse Oximetry (%) 100 02/09/19 09:00 GENERAL: The patient is awake, alert, and fully oriented, in no acute distress. HEAD: Normal with no signs of trauma. EYES: PERRL, extraocular movements intact, sclera anicteric, conjunctiva clear. ENT: Ears normal, ropharynx clear without exudates, moist mucous membranes. NECK: Trachea midline, full range of motion, supple. LUNGS: Breath sounds equal, clear to auscultation bilaterally, no wheezes, no crackles, no accessory muscle use. HEART: Regular rate and rhythm, S1, S2 without murmur, rub or gallop. ABDOMEN: Soft, nontender, nondistended, normoactive bowel sounds, no guarding, no rebound, no hepatosplenomegaly, no masses. EXTREMITIES: 2+ pulses, warm, well-perfused, no edema. NEUROLOGICAL: Cranial nerves II through XII grossly intact. Normal speech, gait not observed. PSYCH: Normal mood, normal affect. SKIN: Warm, dry, normal turgor, no rashes or lesions noted CBCD WBC 8.4 K/mm3 (4.0-10.0) 02/09/19 05:52 RBC 3.67 M/mm3 (3.60-5.2) 02/09/19 05:52 Hgb 8.7 GM/dL (10.7-15.3) L 02/09/19 05:52 Hct 28.3 % (32.4-45.2) L 02/09/19 05:52 MCV 76.9 fl (80-96) L 02/09/19 05:52 MCHC 30.9 g/dl (32.0-36.0) L 02/09/19 05:52 RDW 21.9 % (11.6-15.6) H 02/09/19 05:52 Plt Count 423 K/MM3 (134-434) 02/09/19 05:52 MPV 8.6 fl (7.5-11.1) 02/09/19 05:52 CMP Sodium 141 mmol/L (136-145) 02/09/19 06:15 Potassium 4.1 mmol/L (3.5-5.1) 02/09/19 06:15 Chloride 111 mmol/L (98-107) H 02/09/19 06:15 Carbon Dioxide 26 mmol/L (21-32) 02/09/19 06:15 Anion Gap 5 MMOL/L (8-16) L 02/09/19 06:15 BUN 5.4 mg/dL (7-18) L 02/09/19 06:15 Creatinine 0.7 mg/dL (0.55-1.3) 02/09/19 06:15 Random Glucose 85 mg/dL (74-106) 02/09/19 06:15 Calcium 8.8 mg/dL (8.5-10.1) 02/09/19 06:15 Total Bilirubin 0.2 mg/dL (0.2-1) 02/07/19 20:50 AST 19 U/L (15-37) 02/07/19 20:50 ALT 19 U/L (13-61) 02/07/19 20:50 Alkaline Phosphatase 69 U/L (45-117) 02/07/19 20:50 Total Protein 8.1 g/dl (6.4-8.2) 02/07/19 20:50 Albumin 4.0 g/dl (3.4-5.0) 02/07/19 20:50 CARDIAC ENZYMES Troponin I < 0.02 ng/ml (0.00-0.05) 02/07/19 20:50 Current Medications Generic Name Dose Route Start Last Admin Trade Name Freq PRN Reason Stop Dose Admin Sodium Chloride 1,000 mls @ 100 mls/hr 02/08/19 02:15 02/08/19 18:46 Normal Saline - IV 100 mls/hr ASDIR GRETCHEN Administration Home Medications Medication Instructions Recorded Docusate Sodium [Colace] 100 mg PO TID #90 capsule 02/09/19 Ferrous Sulfate [Iron] 325 mg PO TID 30 Days #90 tablet 02/09/19 Carotid doppler: negative Transvaginal US reviewed above, Small submucosal fibroid, may be a cause of anemia via heavy menstruations ASSESSMENT AND PLAN: Patient is a 33yo female w/ PMHx. of anemia (currently self treating with OTC Iron tablets) presents after a syncopal episode that lasted 30 seconds. #Syncope most likely due to Iron deficency anemia , patient is getting IV Irom infusion x second dose today , her ferritin 3.4 # Sinus tachycardia suggestive of postural orthostatic tachycardia syndrome/POTS ; as per cardio's openion needs EP studies as an outpatient, patient was given information and to call for an appointment for EP study . #microcytic Anemia on IV iron x 2 doses , will discharge her on iron supplemenet with colac 3 x per day #Thrombocytosis - resolved DVT Ppx: Early ambulation
--- NOTE | 2019-02-09 13:04 | DS ---
Physical Exam: SUBJECTIVE: Patient was discharged before being seen by me. please see attending Dr Hunt note for further details OBJECTIVE: Vital Signs Period Temp Pulse Resp BP Sys/Lundberg Pulse Ox Last 24 Hr 98.1 F-99.0 F 75-88 18-20 105-129/60-75 99-100 PHYSICAL EXAM Patient was discharged before being seen by me. please see attending Dr Hunt note for further details LABS Laboratory Results - last 24 hr 02/08/19 02/09/19 02/09/19 03:15 05:52 06:15 WBC 8.4 RBC 3.67 Hgb 8.7 L Hct 28.3 L MCV 76.9 L MCH 23.8 L MCHC 30.9 L RDW 21.9 H Plt Count 423 MPV 8.6 Absolute Neuts (auto) 5.3 Neutrophils % 63.8 Lymphocytes % 26.2 D Monocytes % 6.6 Eosinophils % 2.8 D Basophils % 0.6 Nucleated RBC % 0 Sodium 141 Potassium 4.1 Chloride 111 H Carbon Dioxide 26 Anion Gap 5 L BUN 5.4 L Creatinine 0.7 Est GFR (CKD-EPI)AfAm 130.10 Est GFR (CKD-EPI)NonAf 112.25 Random Glucose 85 Calcium 8.8 Iron 14 L TIBC 348 Iron Saturation 4 L Unsaturated IBC 334 TSH 2.05 Free T4 0.84 ECHO Interpretation Summary The left ventricle is normal in size. Left ventricular systolic function is normal. No regional wall motion abnormalities noted. Ejection Fraction = 65-70%. The right ventricular systolic function is normal. The left atrial size is normal. Right atrial size is normal. There is mild mitral annular calcification. There is mild mitral regurgitation. There is mild tricuspid regurgitation. Right ventricular systolic pressure is normal. Trace to mild pulmonic valvular regurgitation. There is no pericardial effusion. Previous study is not available for comparison Zacarias Krishnan MD 02/08/2019 12:16 PM Reported By: Zacarias Krishnan MD 02/08/19 1216 [id number] US/TRANSVAGINAL ULTRASOUND US HISTORY PROVIDED: Fibroid evaluation. Real time examination of the pelvis utilizing the transvaginal probe demonstrates the following: The uterus is normal in size measuring 9.3 x 5.2 x 4.7 cm. There is a submucosal uterine mass measuring 3.1 x 2.8 x 1.8 cm. This is consistent with a leiomyoma. A normal appearing endometrium of 3 mm thickness is identified. A nabothian cyst is noted within the cervix. The ovaries are normal in size and texture with arterial flow documented to both ovaries. There is no evidence of adnexal masses or free pelvic fluid collections. IMPRESSION: Small submucosal fibroid, otherwise normal pelvic sonogram. Reported By: Barrett Alas MD 02/08/19 0836 HOSPITAL COURSE: Date of Admission:02/08/19 HISTORY OF PRESENT ILLNESS: Pt. is a 33 y.o. F w/ PMHx. of anemia (currently self treating with OTC Iron tablets) presents after a syncopal episode that lasted 30 seconds. Pt. states that she felt lightheaded and dizzy just before fainting. Pt. endorses eating 1 hour before syncope. She states that she was with her friend who caught her as she was falling(preventing head trauma) noticed that her eyes rolled back in her head and that her hands clenched. Pt. denies biting her tongue, urinary or bowel incontinence, or a post-ictal state. Pt. states that this has happened before in September where she had the same pro- dromal symptoms and the same events with 3 notable exceptions: she was uncertain about biting her tongue at that time, she hit her head and she was in the middle of her menstruation cycle at that time. Pt. states that she has an irregular menstrual cycle and that she has heavy bleeding episodes when she does menstruate. Pt. endorses missing her periods in December and October. Pt. endorses a heavy bleeding course during this last cycle (LMP January 29). 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 Pt. does not take OCPs, has never had a pelvic US and is no longer prescribed Iron tablets. Pt. endorses feeling anxious both at work an at home. Pt. denies any chest pain, shortness of breath, numbness/tingling, fever, chills, changes in bowel or urinary habits, nausea or vomiting at this time. Date of Discharge: 02/09/19 33 y.o. F w/ PMHx. of anemia (currently self treating with OTC Iron tablets) presents after a syncopal episode that lasted 30 seconds. Admitted for Syncope, possibly 2/2 dehydration vs noted microcytic anemia and for r/o seizure s/p 2L NS in ED pt non septic appearing, no neuro deficicts on exam, tolerating PO Neurology consulted, Dr. Nichols Cardiology consulted, [facility] negative CXR nl UA, Utox neg Echo reviewed above Carotid Doppler without evidence of HD significant stenosis b/l CT head no acute pathology pt received IVF and felt better s/p EEG, pt will f/u outpt w/ neuro for final result per cardio: No therapy initiation is recommended as of yet pending completion of evaluation, tilt table testing. pt will f/u outpt cardio for tilt table test pt encouraged to keep hydrated at home Of note, pt found w/ microcytic Anemia: HgB 9.1...8.2...8.7, which likely is contributing factor for syncopal episode so signs of active GI bleeding noted, although as noted above, has hx of heavy menstruation. Transvaginal US reviewed above, Small submucosal fibroid, may be a cause of anemia via heavy menstruations pt will f/u outpt w/ OBGYN B12 folate nl Iron studies, ferritin 3, iron 14, iron sat 4, TIBC 348 Reticulocyte count elevated 2.14 pt is severely iron deficient. pt now s/p IV iron x2 and will be dc w/ Feosol 325mg TID, and will f/u w/ PCP and heme, Dr Pedersen, as outpt for any further w/u pt stable and ready for dc w/ appropriate f/u Minutes to complete discharge: 38 Discharge Summary Reason For Visit: SYNCOPE/TACHYCARDIA Current Active Problems Syncope (Acute) Condition: Good - Instructions Diet, Activity, Other Instructions: you presented to the hospital due to syncopal episode , most likely due to severe iron deficiency anemia or postural hypotension please take feosol/iron supplements three times a day for anemia with stool softener to avoid constipation. resume home meds FOLLOW UP Dr Nichols 1 week to review EEG results follow up with your OBGYN in 1 week follow up with Dr Pedersen blood doctor within one week for further w/u if needed follow up with DR. Ana Rodrigezrincon machine staker within one week , you need to do tilt table test as out patient. if you develop chest pain , shortness of breath or dizziness please call 911 or return to emergency room. Referrals: Dafne Jara MD [Staff Physician] - 1 Week Ken Pedersen MD [Staff Physician] - 1 Week Disposition: HOME - Home Medications Comprehensive Discharge Medication List: Ambulatory Orders Docusate Sodium [Colace] 100 mg PO TID #90 capsule 02/09/19 Ferrous Sulfate [Iron] 325 mg PO TID 30 Days #90 tablet 02/09/19 This patient is new to me today: Yes Date on this admission: 02/09/19 Emergency Visit: Yes ED Registration Date: 02/08/19 Care time: The patient presented to the Emergency Department on the above date and was hospitalized for further evaluation of their emergent condition. Critical Care patient: No - Discharge Referral Referred to [facility] Med P.C.: No
--- NOTE | 2019-02-09 14:07 | CONS ---
DATE OF CONSULTATION: 02/09/2019 REQUESTING PHYSICIAN: Hospitalist service. CHIEF COMPLAINT: Evaluation of a recurrent syncopal episode. HISTORY: A 33-year-old female of descent with prior history of syncope during her teenage years and a recurrent episode in September of this year with associated generalized muscular twitching who presented to [facility] this past Friday with sudden onset of dizziness followed by transient loss of consciousness. According to the patient, she was with her friend who was able to observe her presentation, and subsequently she held her and avoided a fall. Patient did not report any associated palpitations. Patient did not report any associated nausea or vomiting. Her episode in September of this year was similar in presentation. Patient did not report any bowel or urinary incontinence. Patient denies any history of chest discomfort. Patient denies any dyspnea, orthopnea, paroxysmal or nocturnal dyspnea, or peripheral edema. Patient denies any fatigue or tiredness. Patient has been reporting heavy, irregular menses, and subsequently, she was noted to have evidence of anemia. PAST MEDICAL HISTORY: History of syncope. PAST SURGICAL HISTORY: None. SOCIAL HISTORY: Nonsmoker. Denies alcohol consumption. Denies drug abuse. FAMILY HISTORY: No family history of premature coronary artery disease or sudden cardiac . ALLERGIES: None reported. MEDICAL THERAPY: At home, none. REVIEW OF SYSTEMS: Head and Neck: Denies headache, photophobia, blurring of vision. Respiratory: No cough or sputum production. Cardiovascular: As noted above. Gastrointestinal: Denies nausea, vomiting, diarrhea, abdominal discomfort. Genitourinary: As noted above. Heavy menses. Musculoskeletal: No symptoms reported. PHYSICAL EXAMINATION: Vital Signs: Blood pressure is 111/71 mmHg, pulse rate is 81, intermittent sinus tachycardia noted with ambulation. Afebrile. Temperature 98.5 Fahrenheit. Head and Neck: Pupils equal and reactive to light and accommodation. Extraocular muscles are intact. Anicteric sclerae. Negative JVD. No bruits appreciated. Chest: Clear to auscultation, percussion. Cardiovascular: S1, S2. Regular. No clicks or gallops. Abdomen: Soft, benign. Normoactive bowel sounds. Extremities: Negative edema. Intact distal pulses. No calf tenderness. DIAGNOSTIC DATA: Electrocardiogram revealed sinus rhythm with a minor right-sided conduction delay, sinus tachycardia. CBC revealed white cell count 8.4, hemoglobin 8.7, platelet count 423. Basic metabolic profile revealed sodium 141, potassium 4.1, BUN 5.4, creatinine 0.7, glucose 85. Toxicology negative. ASSESSMENT: 1. Clinical presentation consistent with neurocardiogenic syncope, vasovagal syncope, unlikely to be vasodepressor or cardioinhibitory. 2. Sinus tachycardia suggestive of postural orthostatic tachycardia syndrome. 3. Iron-deficiency anemia related to heavy menses post iron infusion. RECOMMENDATION: 1. No therapy initiation is recommended as of yet pending completion of evaluation, performing outpatient patient tilt table testing. 2. Patient was counseled liberalizing fluid and salt intake. 3. Correction of anemia. 4. Tilt table testing as outlined above on outpatient basis and consideration for initiation of beta-woodrow therapy eventually if clinically indicated. 5. Patient can be discharged home from the cardiovascular point of view. 6. Discussed in detail with the patient above plan of management. ARI BUTLER M.D. [id number]
== END 2019-02-09 15:25 | disposition home or self-care (01) | DRG 812 ==
LOC: JER 19:59 → JERBED 21:33 → OBSVTOIN 02-08 00:42 → J4W 02-08 15:33 → JERBED 02-08 15:37 → J4W 02-08 15:39
PROVIDERS: ADMIT Internal Medicine; ATTEND Internal Medicine
DX: D62 Acute posthemorrhagic anemia (principal); R55 Syncope and collapse; F17.210 Nicotine dependence, cigarettes, uncomplicated; D47.3 Essential (hemorrhagic) thrombocythemia; D25.0 Submucous leiomyoma of uterus; N88.8 Other specified noninflammatory disorders of cervix uteri; R00.0 Tachycardia, unspecified; N92.0 Excessive and frequent menstruation with regular cycle
CPT/HCPCS: 36415; 70450-TC; 71045-TC-FY; 76830-TC; 80048; 80053; 80307; 81003; 82607; 82728; 82746; 82962; 83540; 83550; 83735; 84100; 84439; 84443; 84481; 84484; 84703; 85025; 85027; 85044; 87086; 93005; 93010; 93306-TC; 93880-TC; 95816; 99285-25; G0378; J1756; J7030